=== PATIENT | male | born 1960 | race Caucasian/White ===

== ENCOUNTER 2017-03-26 12:15 | Emergency (ER) | payer OTHER ==
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
[2017-03-26] MEDS ORDERED: ADENOSINE 6 MG/2 ML VIAL IVPUSH ONE (12:37)
[2017-03-26 12:42] VITALS: TEMP 99.6; BMI 28.7
[2017-03-26 13:10] LABS: BASOPHIL 0.6 % (0-2.0); EOSINOPHIL 1.8 % (0-4.5); MEAN CELL VOLUME 85.4 fl (80-96); MEAN PLT VOLUME 8.8 fl (7.5-11.1); NEUTROPHILS 74.5 % (42.8-82.8); PLATELET COUNT 168 K/MM3 (134-434); RDW 12.8 % (11.9-15.9); WHITE BLOOD COUNT 7.6 K/mm3 (4.0-10.0)
[2017-03-26 13:14] LABS: VENOUS BLOOD GAS HCO3 22.6 meq/L (19-25); VENOUS PH 7.37 (7.32-7.42)
[2017-03-26 13:18] LABS: ALBUMIN 4.4 g/dl (3.4-5.0); BILIRUBIN,TOTAL 0.5 mg/dL (0.2-1.0); CALCIUM 9.3 mg/dL (8.5-10.1); COCKROFT - GAULT 77.39; CREATININE 1.4 mg/dL (0.7-1.3); TOT PROT 7.8 g/dl (6.4-8.2)
[2017-03-26] MEDS ORDERED: SODIUM CHLORIDE 1,000 ML IV ONE (13:57)
[2017-03-26] MEDS ORDERED: POTASSIUM CHLORIDE TABS 20 MEQ TABLET.ER (FP) PO ONE ×2 (14:02→15:25)
[2017-03-26 16:22] VITALS: BP 113/68; PULSE 78
--- NOTE | 2017-03-28 12:13 | EKG ---
Test Reason : Blood Pressure : / mmHG Vent. Rate : 102 BPM Atrial Rate : 102 BPM P-R Int : 200 ms QRS Dur : 100 ms QT Int : 356 ms P-R-T Axes : 054 037 027 degrees QTc Int : 463 ms SINUS TACHYCARDIA WITH 1ST DEGREE A-V BLOCK INCOMPLETE RIGHT BUNDLE BRANCH BLOCK Confirmed by MD ANGELICA, WOOD ([id number]) on 03/28/2017 12:12:47 PM Referred By: Confirmed By:WOOD DOMINGUEZ MD
== END 2017-03-26 16:05 | disposition home or self-care (01) ==
LOC: JER 12:15
PROC: 3E0337Z Introduction of Electrolytic and Water Balance Substance into Peripheral Vein, Percutaneous Approach (ICD-10-PCS; principal; 2017-03-26)
DX: I47.1 Supraventricular tachycardia (principal); E86.0 Dehydration; X58.XXXA Exposure to other specified factors, initial encounter; Y93.89 Activity, other specified; Y92.9 Unspecified place or not applicable; Y99.0 Civilian activity done for income or pay
CPT/HCPCS: 36415; 80053; 82803; 85025; 93005; 93010; 99282-25